=== PATIENT | male | born 1995 | race Caucasian/White ===

== ENCOUNTER 2023-01-05 06:55 | Emergency (ER) | payer OTHER ==
[~2023-01-05] VITALS: Ht 172.7 cm; Wt 113.6 kg
[2023-01-05 08:26] LABS: BASO % 0.3 % (0.0-1.0); EOS # 0.1 10^3/uL (0.0-0.5); EOS % 0.8 % (0.0-3.0); HEMATOCRIT 47.4 % (42.0-52.0); HEMOGLOBIN 16.6 g/dl (13.5-17.5); LYMPH # 2.2 10^3/uL (1.5-5.0); LYMPH % 34.1 % (24.0-44.0); MEAN CORPUSCULAR HEMOGLOBIN 31.8 pg (27.0-33.0); MEAN CORPUSCULAR VOLUME 90.8 fl (80.0-96.0); MONO # 0.8 10^3/uL (0.0-0.8); MONO % 12.5 % (2.0-8.0); NEUTROPHILS # 3.4 10^3/uL (1.5-8.5); PLATELET COUNT, AUTOMATED 257 10^3/uL (150-450); RED BLOOD COUNT 5.22 10^6/uL (4.30-6.10); WHITE BLOOD COUNT 6.5 10^3/uL (4.0-10.0)
[2023-01-05 08:56] LABS: LIPASE 47 U/L (12-53)
[2023-01-05 08:59] LABS: ALBUMIN 3.9 G/DL (3.2-5.2); ALKALINE PHOSPHATASE 44 U/L (46-116); ALT/SGPT 52 U/L (7.0-40); AST/SGOT 79 U/L (<34); BILIRUBIN,DIRECT 0.3 MG/DL (<0.4); BILIRUBIN,TOTAL 0.9 MG/DL (0.3-1.2); BLOOD UREA NITROGEN 21 MG/DL (9-23); CALCIUM LEVEL 9.2 MG/DL (8.5-10.1); CARBON DIOXIDE LEVEL 25 MMOL/L (20-31); CHLORIDE LEVEL 100 MMOL/L (98-107); CREATININE FOR GFR 0.84 MG/DL (0.70-1.30); GLOMERULAR FILTRATION RATE > 60.0 (>60); GLUCOSE, FASTING 112 MG/DL (60-100); SODIUM LEVEL 137 MMOL/L (136-145); TOTAL PROTEIN 7.5 G/DL (5.7-8.2)
[2023-01-05] MEDS ORDERED: NS 1,000 ML IV ONE (10:45)
[2023-01-05] MEDS ORDERED: ONDANSETRON 4MG 2ML VIAL IV ONE (10:45)
[2023-01-05 11:57] LABS: HEPATITIS B SURFACE ANTIGEN NEGATIVE (NEGATIVE)
[2023-01-05] MEDS ORDERED: ONDA4TAB6 PO (12:15)
[2023-01-05 12:18] LABS: HEPATITIS C VIRUS ABY INDEX 0.1 INDEX (<0.8)
[2023-01-05 12:19] LABS: HEPATITIS B CORE ANTIBODY IGM NEGATIVE (NEGATIVE)
[2023-01-05 12:51] VITALS: BP 153/75; TEMP 98; O2SAT 98
== END 2023-01-05 12:52 | disposition home or self-care (01) ==
LOC: M ED 06:55
DX: A05.9 Bacterial foodborne intoxication, unspecified (principal)
CPT/HCPCS: 76705; 80048; 80076; 83690; 85025; 86705; 86709; 86803; 87340; 96374; 99284; J2405

== ENCOUNTER 2023-04-05 12:22 | Emergency (ER) | payer OTHER ==
[~2023-04-05] VITALS: Ht 172.7 cm; Wt 116.6 kg
[2023-04-05 12:22] VITALS: BP 158/108; TEMP 98.1; O2SAT 95
[~2023-04-05 12:22] MED LIST: ONDA4TAB6 PO
[2023-04-05 15:28] VITALS: BP 180/92
== END 2023-04-05 15:33 | disposition home or self-care (01) ==
LOC: M ED 12:22
DX: R07.9 Chest pain, unspecified (principal); Z91.048 Other nonmedicinal substance allergy status; Z79.52 Long term (current) use of systemic steroids; Z79.899 Other long term (current) drug therapy

== ENCOUNTER 2023-09-27 11:28 | Inpatient (IN) | payer OTHER ==
[~2023-09-27] VITALS: Ht 172.7 cm; Wt 121.1 kg
[~2023-09-27 11:28] MED LIST changes: +FOLIC ACID 1MG TAB PO SCH; +MULTIVITAMINS/MINERALS THERAP 1 TAB PO SCH; +THIAMINE 100 MG TAB PO SCH
[2023-09-27] MEDS ORDERED: LISI10TA22 PO (11:33)
[2023-09-27] MEDS ORDERED: HYDR12.55 PO (11:34)
[2023-09-27] MEDS ORDERED: FOLI400T13 PO (11:34)
[2023-09-27] MEDS ORDERED: ACAM0.05 PO (11:34)
[2023-09-27] MEDS ORDERED: GNP250TA9 PO (11:35)
[2023-09-27] MEDS ORDERED: LORazepam 2 MG TAB PO PRN (11:40)
[2023-09-27 12:04] LABS: BASO # 0.1 10^3/uL (0.0-0.2); BASO % 0.7 % (0.0-1.0); EOS % 0.3 % (0.0-3.0); HEMATOCRIT 41.6 % (42.0-52.0); HEMOGLOBIN 14.8 g/dl (13.5-17.5); LYMPH # 1.4 10^3/uL (1.5-5.0); MEAN CORPUSCULAR HEMOGLOBIN 34.2 pg (27.0-33.0); MEAN CORPUSCULAR HGB CONC 35.6 g/dl (32.0-36.5); MEAN CORPUSCULAR VOLUME 96.1 fl (80.0-96.0); MONO # 0.8 10^3/uL (0.0-0.8); MONO % 10.3 % (2.0-8.0); NEUTROPHILS # 5.2 10^3/uL (1.5-8.5); NEUTROPHILS % 69.3 % (36.0-66.0); PLATELET COUNT, AUTOMATED 241 10^3/uL (150-450); RED BLOOD COUNT 4.33 10^6/uL (4.30-6.10); WHITE BLOOD COUNT 7.5 10^3/uL (4.0-10.0)
[2023-09-27 12:26] LABS: ETHYL ALCOHOL (ETHANOL) 0.009 % (0.000-0.010)
[2023-09-27 12:28] LABS: SALICYLATE LEVEL < 3.0 MG/DL (<30)
[2023-09-27] MEDS: LORazepam 2 MG/ML 1ML VIAL IV STA (12:36)
[2023-09-27] MEDS: METOPROLOL TART 50 MG TAB PO ONE (12:36)
[2023-09-27] MEDS: METOPROLOL 5 MG/5 ML VIAL IV SCH (12:36)
[2023-09-27 12:45] LABS: RSV AMPLIFICATION NEGATIVE (NEGATIVE)
[2023-09-27 13:04] LABS: CPK CREATINE PHOSPHOKINASE 1249 U/L (46-171)
[2023-09-27 13:08] LABS: ALKALINE PHOSPHATASE 33 U/L (46-116); ALT/SGPT 149 U/L (7.0-40); AST/SGOT 121 U/L (<34); BILIRUBIN,DIRECT 0.3 MG/DL (<0.4); BILIRUBIN,TOTAL 0.6 MG/DL (0.3-1.2); BLOOD UREA NITROGEN 9 MG/DL (9-23); CALCIUM LEVEL 8.5 MG/DL (8.5-10.1); CARBON DIOXIDE LEVEL 30 MMOL/L (20-31); CHLORIDE LEVEL 102 MMOL/L (98-107); CREATININE FOR GFR 0.69 MG/DL (0.70-1.30); GLOMERULAR FILTRATION RATE > 60.0 (>60); GLUCOSE, FASTING 107 MG/DL (60-100); POTASSIUM SERUM 3.9 MMOL/L (3.5-5.1); SODIUM LEVEL 140 MMOL/L (136-145); THYROID STIMULATING HORMONE 2.964 uIU/ML (0.55-4.78); TOTAL PROTEIN 6.9 G/DL (5.7-8.2)
[2023-09-27 13:40] LABS: AMPHETAMINES LEVEL URINE NEGATIVE (NEGATIVE); BARBITURATES URINE NEGATIVE (NEGATIVE); BENZODIAZEPINES URINE NEGATIVE (NEGATIVE); CANNABINOIDS URINE NEGATIVE (NEGATIVE); COCAINE METABOLITE URINE NEGATIVE (NEGATIVE); METHADONE URINE NEGATIVE (NEGATIVE); OPIATES URINE NEGATIVE (NEGATIVE); PHENCYCLIDINE URINE NEGATIVE (NEGATIVE)
[2023-09-27] MEDS ORDERED: MAGN400T2 PO (14:01)
[2023-09-27] MEDS ORDERED: IBUP-1764 PO (14:01)
[2023-09-27] MEDS ORDERED: ONDA4TAB6 PO (14:01)
[2023-09-27] MEDS ORDERED: HOME MED LIST COMPLETE! XX SCH (14:05)
[2023-09-27] MEDS: OXAZEPAM 15MG CAP PO ONE (14:09)
[2023-09-27] MEDS: MAG SULF 1GM/100ML (MAG RUN) 1 GM in IV 1 EA IV ONE ×2 (14:09→20:45)
[2023-09-27] MEDS: cloNIDine 0.1MG TABLET PO SCH (15:20)
[2023-09-27] MEDS: MULTIVITAMIN -ADULT INJECTION 10 ML, THIAMINE INJection 100 MG, FOLIC ACID 1 MG in NS 1... IV ONE (15:21)
[2023-09-27] MEDS: MAGNESIUM OXIDE 400MG TAB (MAG-OX) PO SCH ×2 (15:24→22:48)
[2023-09-27 20:00] VITALS: BP 177/100; TEMP 97.7; O2SAT 98
[2023-09-27] MEDS: METOPROLOL TART 50 MG TAB PO SCH (20:44)
[2023-09-27 20:53] VITALS: BP 168/100
[2023-09-27 21:55] VITALS: BP 167/100
[2023-09-27] MEDS: OXAZEPAM 15MG CAP PO SCH (22:48)
[2023-09-27 22:50] VITALS: BP 180/89
[2023-09-27 23:21] LABS: MAGNESIUM LEVEL 1.6 MG/DL (1.8-2.4)
[2023-09-27 23:45] VITALS: BP 164/106
[2023-09-28] VITALS (7 sets, daily range): BP systolic 152–169; BP diastolic 90–121; TEMP 98.2; O2SAT 97
[2023-09-28 06:31] LABS: BASO % 0.5 % (0.0-1.0); EOS # 0.1 10^3/uL (0.0-0.5); EOS % 1.4 % (0.0-3.0); HEMATOCRIT 41.6 % (42.0-52.0); HEMOGLOBIN 14.2 g/dl (13.5-17.5); LYMPH # 1.5 10^3/uL (1.5-5.0); MEAN CORPUSCULAR HEMOGLOBIN 33.6 pg (27.0-33.0); MEAN CORPUSCULAR HGB CONC 34.1 g/dl (32.0-36.5); MEAN CORPUSCULAR VOLUME 98.3 fl (80.0-96.0); MONO # 0.6 10^3/uL (0.0-0.8); MONO % 10.5 % (2.0-8.0); NEUTROPHILS # 3.4 10^3/uL (1.5-8.5); NEUTROPHILS % 60.2 % (36.0-66.0); PLATELET COUNT, AUTOMATED 213 10^3/uL (150-450); RED BLOOD COUNT 4.23 10^6/uL (4.30-6.10); WHITE BLOOD COUNT 5.7 10^3/uL (4.0-10.0)
[2023-09-28 06:48] LABS: INR 1.1; PARTIAL THROMBOPLASTIN TIME 25.6 SECONDS (24.8-34.2); PROTHROMBIN TIME 13.9 SECONDS (12.5-14.5)
[2023-09-28 07:07] LABS: ALBUMIN 3.3 G/DL (3.2-5.2); ALKALINE PHOSPHATASE 31 U/L (46-116); ALT/SGPT 109 U/L (7.0-40); AST/SGOT 73 U/L (<34); BILIRUBIN,DIRECT 0.4 MG/DL (<0.4); BILIRUBIN,TOTAL 1.2 MG/DL (0.3-1.2); BLOOD UREA NITROGEN 10 MG/DL (9-23); CALCIUM LEVEL 8.1 MG/DL (8.5-10.1); CARBON DIOXIDE LEVEL 31 MMOL/L (20-31); CHLORIDE LEVEL 100 MMOL/L (98-107); CREATININE FOR GFR 0.73 MG/DL (0.70-1.30); GLOMERULAR FILTRATION RATE > 60.0 (>60); GLUCOSE, FASTING 97 MG/DL (60-100); MAGNESIUM LEVEL 1.6 MG/DL (1.8-2.4); POTASSIUM SERUM 3.6 MMOL/L (3.5-5.1); SODIUM LEVEL 136 MMOL/L (136-145); TOTAL PROTEIN 6.1 G/DL (5.7-8.2)
[2023-09-28 07:22] LABS: CPK CREATINE PHOSPHOKINASE 602 U/L (46-171)
[2023-09-28] MEDS: MULTIVITAMINS/MINERALS THERAP 1 TAB PO SCH (09:33)
[2023-09-28] MEDS: THIAMINE 100 MG TAB PO SCH (09:34)
[2023-09-28] MEDS: FOLIC ACID 1MG TAB PO SCH (09:34)
[2023-09-28] MEDS: hydroCHLOROthiazide 12.5 MG CAPSULE PO SCH (09:37)
[2023-09-28] MEDS: MAG SULF 1GM/100ML (MAG RUN) 1 GM in IV 1 EA IV SCH (09:39)
[2023-09-28 12:28] LABS: HEPATITIS C VIRUS ABY INDEX 0.05 INDEX (<0.8)
[2023-09-28 12:29] LABS: HEPATITIS B CORE ANTIBODY IGM NEGATIVE (NEGATIVE)
[2023-09-28] MEDS: CHLORTHALIDONE 25 MG TAB PO SCH (12:37)
[2023-09-28] MEDS ORDERED: ENOXAPARIN 40MG/0.4ML SYRINGE (J1650 PER 10MG) SC SCH (21:00)
[2023-09-29] MEDS ORDERED: OXAZEPAM 15MG CAP PO SCH
[2023-09-29] MEDS ORDERED: lisinopriL 40MG TAB PO SCH (09:00)
[2023-09-30] MEDS ORDERED: OXAZEPAM 15MG CAP PO SCH (04:00)
[2023-10-01] MEDS ORDERED: OXAZEPAM 15MG CAP PO SCH (21:00)
== END 2023-09-28 14:32 | disposition home or self-care (01) | DRG 898 ==
LOC: M ED 11:28 → M ED INP 14:51
PROVIDERS: ADMIT Internal Medicine Nephrology; ATTEND Internal Medicine Nephrology
DX: F10.239 Alcohol dependence with withdrawal, unspecified (principal); M62.82 Rhabdomyolysis; I10 Essential (primary) hypertension; I16.0 Hypertensive urgency; F17.290 Nicotine dependence, other tobacco product, uncomplicated; E83.42 Hypomagnesemia; E66.01 Morbid (severe) obesity due to excess calories; R74.01 Elevation of levels of liver transaminase levels; E87.6 Hypokalemia; Z79.899 Other long term (current) drug therapy; Z11.52 Encounter for screening for COVID-19

== ENCOUNTER 2024-01-07 04:25 | Inpatient (IN) | payer OTHER ==
[~2024-01-07] VITALS: Ht 172.7 cm; Wt 114.7 kg
[~2024-01-07 04:25] MED LIST changes: +ACAM0.05 PO; +FOLI400T13 PO; -FOLIC ACID 1MG TAB PO SCH; +GNP250TA9 PO; +HYDR12.55 PO; +IBUP-1764 PO; +LISI10TA22 PO; +MAGN400T2 PO; -MULTIVITAMINS/MINERALS THERAP 1 TAB PO SCH; +ONDA-282 PO; -ONDA4TAB6 PO; -THIAMINE 100 MG TAB PO SCH
[2024-01-07 05:21] LABS: BASO % 0.3 % (0.0-1.0); LYMPH # 1.1 10^3/uL (1.5-5.0); LYMPH % 10.7 % (24.0-44.0); MEAN CORPUSCULAR HEMOGLOBIN 32.4 pg (27.0-33.0); MEAN CORPUSCULAR HGB CONC 36.5 g/dl (32.0-36.5); MEAN CORPUSCULAR VOLUME 88.6 fl (80.0-96.0); MONO # 1.5 10^3/uL (0.0-0.8); MONO % 14.2 % (2.0-8.0); NEUTROPHILS % 74.4 % (36.0-66.0); PLATELET COUNT, AUTOMATED 208 10^3/uL (150-450); RED BLOOD COUNT 5.87 10^6/uL (4.30-6.10); WHITE BLOOD COUNT 10.7 10^3/uL (4.0-10.0)
[2024-01-07] MEDS: NS 1,000 ML IV ONE ×3 (05:22→11:04)
[2024-01-07] MEDS ORDERED: ONDANSETRON 4MG 2ML VIAL As Ordered ONE (05:24)
[2024-01-07] MEDS: ONDANSETRON 4MG 2ML VIAL IV ONE (05:27)
[2024-01-07 05:46] LABS: LIPASE 234 U/L (12-53)
[2024-01-07 05:53] LABS: ALBUMIN 4.5 G/DL (3.2-5.2); ALKALINE PHOSPHATASE 44 U/L (46-116); ALT/SGPT 54 U/L (7.0-40); AST/SGOT 35 U/L (<34); BILIRUBIN,DIRECT 0.3 MG/DL (<0.4); BILIRUBIN,TOTAL 1.3 MG/DL (0.3-1.2); BLOOD UREA NITROGEN 66 MG/DL (9-23); CALCIUM LEVEL 9.4 MG/DL (8.5-10.1); CARBON DIOXIDE LEVEL 29 MMOL/L (20-31); CHLORIDE LEVEL 81 MMOL/L (98-107); CK-MB VALUE MASS < 1.0 NG/ML (<3.6); CPK CREATINE PHOSPHOKINASE 145 U/L (46-171); GLUCOSE, FASTING 176 MG/DL (60-100); MB/CK RELATIVE INDEX 0.68 (< OR =4); POTASSIUM SERUM 3.5 MMOL/L (3.5-5.1); SODIUM LEVEL 127 MMOL/L (136-145); TOTAL PROTEIN 8.4 G/DL (5.7-8.2)
[2024-01-07 06:48] LABS: CK-MB VALUE MASS < 1.0 NG/ML (<3.6)
[2024-01-07 06:52] LABS: CPK CREATINE PHOSPHOKINASE 121 U/L (46-171); MB/CK RELATIVE INDEX 0.82 (< OR =4)
[2024-01-07 07:04] LABS: ETHYL ALCOHOL (ETHANOL) < 0.003 % (0.000-0.010)
[2024-01-07] MEDS ORDERED: ISOVUE-370 76% 100ML VIAL As Ordered ONE (07:28)
[2024-01-07] MEDS: PROMETHAZINE 25MG/ML 1ML VIAL IM ONE (07:41)
[2024-01-07 08:05] LABS: CREATININE,RANDOM URINE 213.9 MG/DL
[2024-01-07 08:06] LABS: CHLORIDE,RANDOM URINE 19.99999 MMOL/L; SODIUM,RANDOM URINE < 10 MMOL/L; TOTAL PROTEIN,RANDOM URINE 139.5 MG/DL (0.0-14.0)
[2024-01-07 08:12] LABS: OSMOLALITY URINE 723 MOSM/KG (50-1400)
[2024-01-07] MEDS: KCL 20MEQ in NS 1000ML 1,000 ML IV SCH (08:22)
[2024-01-07] MEDS ORDERED: LORazepam 2 MG TAB PO PRN (10:30)
[2024-01-07] MEDS: FOLIC ACID 1MG TAB PO SCH (10:59)
[2024-01-07] MEDS: MULTIVITAMINS/MINERALS THERAP 1 TAB PO SCH (10:59)
[2024-01-07] MEDS: PANTOPRAZOLE 40MG VIAL IV SCH ×2 (10:59→19:24)
[2024-01-07] MEDS: THIAMINE 100 MG TAB PO SCH (10:59)
[2024-01-07] MEDS ORDERED: HOME MED LIST COMPLETE! XX SCH (11:25)
[2024-01-07 11:45] VITALS: BP 129/88; TEMP 97.9; O2SAT 97
[2024-01-07 11:52] LABS: HEPATITIS B SURFACE ANTIGEN NEGATIVE (NEGATIVE)
[2024-01-07] MEDS: NS 1,000 ML IV SCH (11:52)
[2024-01-07] MEDS: SUCRALFATE SUSP 1GM/10ML UD PO SCH (12:05)
[2024-01-07 12:12] LABS: HEPATITIS C VIRUS ABY INDEX < 0.02 INDEX (<0.8)
[2024-01-07 12:13] LABS: HEPATITIS B CORE ANTIBODY IGM NEGATIVE (NEGATIVE)
[2024-01-07 12:52] LABS: CREATININE FOR GFR 1.43 MG/DL (0.70-1.30)
[2024-01-07 13:15] LABS: BLOOD UREA NITROGEN 48 MG/DL (9-23); CALCIUM LEVEL 8.2 MG/DL (8.5-10.1); CARBON DIOXIDE LEVEL 32 MMOL/L (20-31); CHLORIDE LEVEL 91 MMOL/L (98-107); GLOMERULAR FILTRATION RATE > 60.0 (>60); GLUCOSE, FASTING 134 MG/DL (60-100); POTASSIUM SERUM 3.2 MMOL/L (3.5-5.1); SODIUM LEVEL 133 MMOL/L (136-145)
[2024-01-07] MEDS: PROMETHAZINE 25MG/ML 1ML VIAL IV SCH (13:57)
[2024-01-07 17:13] LABS: AMPHETAMINES LEVEL URINE NEGATIVE (NEGATIVE); BARBITURATES URINE NEGATIVE (NEGATIVE); BENZODIAZEPINES URINE NEGATIVE (NEGATIVE); CANNABINOIDS URINE NEGATIVE (NEGATIVE); COCAINE METABOLITE URINE NEGATIVE (NEGATIVE); METHADONE URINE NEGATIVE (NEGATIVE); OPIATES URINE NEGATIVE (NEGATIVE); PHENCYCLIDINE URINE NEGATIVE (NEGATIVE)
[2024-01-07 20:00] VITALS: BP 139/92; TEMP 98.4; O2SAT 97
[2024-01-07] MEDS: POTASSIUM CHLORIDE 10MEQ SR TABLET PO ONE (20:22)
[2024-01-07] MEDS: NICOTINE POLACRILEX 2 MG GUM PO PRN (22:40)
[2024-01-08 00:43] LABS: BLOOD UREA NITROGEN 28 MG/DL (9-23); CALCIUM LEVEL 8.1 MG/DL (8.5-10.1); CARBON DIOXIDE LEVEL 32 MMOL/L (20-31); CHLORIDE LEVEL 98 MMOL/L (98-107); CREATININE FOR GFR 0.78 MG/DL (0.70-1.30); GLOMERULAR FILTRATION RATE > 60.0 (>60); GLUCOSE, FASTING 111 MG/DL (60-100); POTASSIUM SERUM 3.2 MMOL/L (3.5-5.1); SODIUM LEVEL 136 MMOL/L (136-145)
[2024-01-08 04:00] VITALS: BP 124/84; TEMP 97; O2SAT 94
[2024-01-08 06:39] LABS: ALKALINE PHOSPHATASE 31 U/L (46-116); ALT/SGPT 45 U/L (7.0-40); AST/SGOT 34 U/L (<34); BILIRUBIN,DIRECT 0.4 MG/DL (<0.4); BILIRUBIN,TOTAL 1.2 MG/DL (0.3-1.2); BLOOD UREA NITROGEN 24 MG/DL (9-23); CALCIUM LEVEL 8.2 MG/DL (8.5-10.1); CARBON DIOXIDE LEVEL 32 MMOL/L (20-31); CHLORIDE LEVEL 99 MMOL/L (98-107); CREATININE FOR GFR 0.73 MG/DL (0.70-1.30); GLOMERULAR FILTRATION RATE > 60.0 (>60); GLUCOSE, FASTING 107 MG/DL (60-100); POTASSIUM SERUM 3.1 MMOL/L (3.5-5.1); SODIUM LEVEL 137 MMOL/L (136-145); TOTAL PROTEIN 5.9 G/DL (5.7-8.2)
[2024-01-08] MEDS: POTASSIUM CHLORIDE 10MEQ SR TABLET PO SCH (09:42)
[2024-01-08] MEDS ORDERED: POTA-298 PO (11:48)
[2024-01-08] MEDS ORDERED: CARA1TAB6 PO (11:48)
[2024-01-08] MEDS ORDERED: FOLI1TAB11 PO (11:48)
[2024-01-08] MEDS ORDERED: THERTAB52 PO (11:48)
[2024-01-08] MEDS ORDERED: PENI500T PO (11:48)
[2024-01-08] MEDS ORDERED: THIA100TA PO (11:48)
[2024-01-08] MEDS ORDERED: PROT1TAB2 PO (11:48)
[2024-01-08] MEDS ORDERED: NICO14DI24 TOP (11:50)
[2024-01-08] MEDS ORDERED: SELF1KIT MC (11:50)
[2024-01-08] MEDS ORDERED: ONDA-282 PO (11:50)
[2024-01-08] MEDS ORDERED: METO1TAB87 PO (11:50)
[2024-01-08] MEDS: PENICILLIN V POTASSIUM 500 MG TAB PO SCH (12:27)
[2024-01-08] MEDS ORDERED: MULT-90 PO (12:42)
[2024-01-08] MEDS ORDERED: NICO1PAT36 TOP (12:42)
[2024-01-08] MEDS ORDERED: METO25TA4 PO (12:42)
[2024-01-08 13:01] LABS: BLOOD UREA NITROGEN 25 MG/DL (9-23); CARBON DIOXIDE LEVEL 30 MMOL/L (20-31); CHLORIDE LEVEL 97 MMOL/L (98-107); CREATININE FOR GFR 0.82 MG/DL (0.70-1.30); GLOMERULAR FILTRATION RATE > 60.0 (>60); GLUCOSE, FASTING 119 MG/DL (60-100); POTASSIUM SERUM 3.6 MMOL/L (3.5-5.1); SODIUM LEVEL 133 MMOL/L (136-145)
[2024-01-08] MEDS ORDERED: PROMETHAZINE 25MG/ML 1ML VIAL IV PRN (14:00)
== END 2024-01-08 12:37 | disposition home or self-care (01) | DRG 683 ==
LOC: M ED 04:25 → M ED INP 10:19 → M MSPAV 11:45
PROVIDERS: ADMIT General Practice; ATTEND General Practice
DX: N17.9 Acute kidney failure, unspecified (principal); E87.1 Hypo-osmolality and hyponatremia; E87.20 Acidosis, unspecified; F10.239 Alcohol dependence with withdrawal, unspecified; Z68.38 Body mass index [BMI] 38.0-38.9, adult; J02.0 Streptococcal pharyngitis; K52.9 Noninfective gastroenteritis and colitis, unspecified; I10 Essential (primary) hypertension; E66.01 Morbid (severe) obesity due to excess calories; F17.290 Nicotine dependence, other tobacco product, uncomplicated; K70.9 Alcoholic liver disease, unspecified; Z79.899 Other long term (current) drug therapy; Z11.52 Encounter for screening for COVID-19; R74.01 Elevation of levels of liver transaminase levels; E83.51 Hypocalcemia